=== PATIENT | male | born 1940 | race Caucasian/White ===

== ENCOUNTER 2020-02-06 23:52 | Observation (INO) ==
[2020-02-07 00:58] LABS: Basophils % 0.4 %; Eosinophils # 0.1 K/mcL (0.0-0.6); Hematocrit 35.7 % (37.5-50.1); Hemoglobin 11.5 g/dL (12.9-16.9); Immature Granulocytes % 0.2 % (0-4); Lymphocytes # 1.1 K/mcL (0.6-4.6); Lymphocytes % 13.4 %; Mean Corpuscular HGB Conc 32.2 g/dL (31.6-35.5); Mean Corpuscular Hemoglobin 28.3 pg (28.0-33.3); Mean Corpuscular Volume 87.7 fL (83.0-100.0); Mean Platelet Volume 11.1 fL (9.4-12.4); Monocytes % 12.8 %; Neutrophils # 5.9 K/mcL (1.6-8.9); Platelet Count 271 K/mcL (140-400); Red Blood Count 4.07 M/mcL (4.19-5.50); Red Cell Distribution Width 13.2 % (11.5-14.5); Segmented Neutrophils % 72.2 %; White Blood Count 8.1 K/mcL (4.3-11.1)
[2020-02-07 01:16] LABS: BUN/Creatinine Ratio 18 (6-26); Blood Urea Nitrogen 14 mg/dL (8-23); Calcium 9.6 mg/dL (8.6-10.3); Carbon Dioxide 26 mEq/L (23-29); Chloride 97 mEq/L (98-107); Glucose 137 mg/dL (70-105); Osmolality,Calculated 279 (280-300); Potassium 3.8 mEq/L (3.5-5.1); Sodium 133 mEq/L (136-145); eGFR For African Americans > 60 (> 60); eGFR For Non-African Americans > 60 (> 60)
[2020-02-07 01:25] LABS: Troponin I 0.06 ng/mL (< 0.04)
[2020-02-07] MEDS ORDERED: Aspirin 81 MG TAB.CHEW PO ONE (01:34)
[2020-02-07 02:02] LABS: Adenovirus Not Detected (Not Detect); Bordetella Pertussis Not Detected (Not Detect); Chlamydophila pneumoniae Not Detected (Not Detect); Coronavirus 229E Not Detected (Not Detect); Coronavirus HKU1 Not Detected (Not Detect); Coronavirus NL63 Not Detected (Not Detect); Coronavirus OC43 Not Detected (Not Detect); Human Metapneumovirus Not Detected (Not Detect); Human Rhinovirus/Enterovirus DETECTED (Not Detect); Influenza A Subtype 2009 H1 Not Detected (Not Detect); Influenza B Not Detected (Not Detect); Mycoplasma pneumoniae Not Detected (Not Detect); Parainfluenza Virus 1 Not Detected (Not Detect); Parainfluenza Virus 2 Not Detected (Not Detect); Parainfluenza Virus 3 Not Detected (Not Detect); Parainfluenza Virus 4 Not Detected (Not Detect); Respiratory Syncytial Virus Not Detected (Not Detect); SARS-CoV-2 Not Detected (Not Detect)
[2020-02-07] MEDS ORDERED: Isovue-370 500 ML BOTTLE IVP ONE (03:38)
[2020-02-07] MEDS ORDERED: Azithromycin 250 MG TABLET PO ONE (05:51)
[2020-02-07] MEDS ORDERED: cefTRIAXone 1,000 MG in Water for inj. (sterile) 10 ML IVP ONE (05:51)
[2020-02-07] MEDS ORDERED: Azithromycin 500 MG in 0.9 % Sodium Chloride 250 ML IVPB ONE (06:31)
[2020-02-07] MEDS ORDERED: Acetaminophen 325 MG TABLET PO PRN (08:04)
[2020-02-07] MEDS ORDERED: Ondansetron 4 MG/2 ML VIAL IVP PRN (08:04)
[2020-02-07] MEDS ORDERED: *HR* HYDROcodone/Acet 5/325 mg TABLET PO PRN (08:04)
[2020-02-07] MEDS ORDERED: Naloxone 0.4 MG/ML INJ IVP PRN (08:04)
[2020-02-07] MEDS ORDERED: *HR* OxyCODONE Immed Rel 5 MG TABLET PO PRN (08:04)
[2020-02-07] MEDS ORDERED: Perflutren Lipid Microsphere 1.3 ML in 0.9 % Sodium Chloride 8.7 ML IVP PRN (08:08)
[2020-02-07] MEDS ORDERED: *HR* OxyCODONE Oral Soln 5 MG/5 ML UD.LIQ GTUBE PRN (12:49)
[2020-02-07] MEDS ORDERED: Ipratropium/Albuterol Neb 3 ML IH PRN (16:58)
[2020-02-07] MEDS: *HR* Heparin 5,000 UNIT/ML VIAL SQ SCH (17:29)
[2020-02-08] MEDS ORDERED: Acetaminophen 325 MG TABLET PO SCH (00:45)
[2020-02-08] MEDS ORDERED: *HR* LORazepam 2 MG/ML VIAL IVP ONE (03:19)
[2020-02-08 03:50] LABS: Basophils % 0.5 %; Eosinophils # 0.2 K/mcL (0.0-0.6); Eosinophils % 2.4 %; Hematocrit 34.6 % (37.5-50.1); Hemoglobin 10.7 g/dL (12.9-16.9); Immature Granulocytes % 0.2 % (0-4); Lymphocytes # 1.7 K/mcL (0.6-4.6); Mean Corpuscular HGB Conc 30.9 g/dL (31.6-35.5); Mean Corpuscular Hemoglobin 27.2 pg (28.0-33.3); Mean Corpuscular Volume 87.8 fL (83.0-100.0); Mean Platelet Volume 11.9 fL (9.4-12.4); Monocytes % 11.7 %; Neutrophils # 5.6 K/mcL (1.6-8.9); Platelet Count 259 K/mcL (140-400); Red Blood Count 3.94 M/mcL (4.19-5.50); Red Cell Distribution Width 13.2 % (11.5-14.5); Segmented Neutrophils % 65.2 %; White Blood Count 8.6 K/mcL (4.3-11.1)
[2020-02-08 04:06] LABS: BUN/Creatinine Ratio 15 (6-26); Blood Urea Nitrogen 12 mg/dL (8-23); Calcium 9.7 mg/dL (8.6-10.3); Carbon Dioxide 25 mEq/L (23-29); Chloride 101 mEq/L (98-107); Glucose 120 mg/dL (70-105); Osmolality,Calculated 281 (280-300); Potassium 3.9 mEq/L (3.5-5.1); Sodium 135 mEq/L (136-145); eGFR For African Americans > 60 (> 60); eGFR For Non-African Americans > 60 (> 60)
[2020-02-08] MEDS: *HR* Heparin 5,000 UNIT/ML VIAL SQ SCH (06:45)
[2020-02-08] MEDS ORDERED: cefTRIAXone 1,000 MG in Water for inj. (sterile) 10 ML IVP SCH (09:00)
[2020-02-08] MEDS ORDERED: Azithromycin 500 MG in 0.9 % Sodium Chloride 250 ML IVPB SCH (09:00)
[2020-02-08 10:06] VITALS: BP 131/72
== END 2020-02-08 17:00 | disposition left against medical advice (07) ==
LOC: 2ANU 23:52 → EMEROOARM 23:52 → SUATTDRO 02-07 06:56 → 2ANU 02-07 07:45
PROVIDERS: ADMIT Internal Medicine; ATTEND Student in an Organized Health Care Education/Training Program

== ENCOUNTER 2020-02-08 20:52 | Observation (INO) ==
[2020-02-08] MEDS ORDERED: Isovue-370 500 ML BOTTLE IVP ONE (21:17)
[2020-02-08 21:43] LABS: Basophils % 0.5 %; Eosinophils # 0.2 K/mcL (0.0-0.6); Eosinophils % 3.2 %; Hematocrit 35.2 % (37.5-50.1); Hemoglobin 10.8 g/dL (12.9-16.9); Immature Granulocytes % 0.3 % (0-4); Lymphocytes # 1.3 K/mcL (0.6-4.6); Lymphocytes % 17.4 %; Mean Corpuscular HGB Conc 30.7 g/dL (31.6-35.5); Mean Platelet Volume 11.1 fL (9.4-12.4); Monocytes # 0.8 K/mcL (0.0-1.3); Monocytes % 10.6 %; Neutrophils # 5.1 K/mcL (1.6-8.9); Platelet Count 295 K/mcL (140-400); Red Cell Distribution Width 13.3 % (11.5-14.5); White Blood Count 7.6 K/mcL (4.3-11.1)
[2020-02-08 22:13] LABS: Alanine Aminotransferase 14 Units/L (7-52); Albumin 3.7 g/dL (3.5-5.7); Albumin/Globulin Ratio 0.9 (1.1-2.2); Alkaline Phosphatase 123 Units/L (34-104); Aspartate Amino Transferase 30 Units/L (13-39); BUN/Creatinine Ratio 15 (6-26); Bilirubin,Total 0.5 mg/dL (0.3-1.0); Blood Urea Nitrogen 11 mg/dL (8-23); Calcium 9.4 mg/dL (8.6-10.3); Carbon Dioxide 25 mEq/L (23-29); Chloride 100 mEq/L (98-107); Glucose 93 mg/dL (70-105); Osmolality,Calculated 279 (280-300); Potassium 4.2 mEq/L (3.5-5.1); Sodium 135 mEq/L (136-145); Total Protein 7.7 g/dL (6.4-8.9); Troponin I 0.06 ng/mL (< 0.04); eGFR For African Americans > 60 (> 60); eGFR For Non-African Americans > 60 (> 60)
[2020-02-08] MEDS ORDERED: Doxycycline 100 MG in 0.9 % Sodium Chloride Mini Bag 100 ML IVPB ONE (22:14)
[2020-02-08] MEDS ORDERED: Acetaminophen 325 MG TABLET PO PRN (22:14)
[2020-02-08] MEDS ORDERED: Naloxone 0.4 MG/ML INJ IVP PRN (22:14)
[2020-02-08] MEDS ORDERED: Ondansetron 4 MG/2 ML VIAL IVP PRN (22:14)
[2020-02-08] MEDS ORDERED: *HR* Dextrose 50 % in Water (Vial) 50 ML VIAL IVP PRN (23:09)
[2020-02-08] MEDS ORDERED: Dextrose Gel 15 GM/37.5 ML TUBE PO PRN ×2 (23:09)
[2020-02-08] MEDS ORDERED: D5% in Water 1,000 ML IVC PRN (23:09)
[2020-02-09] MEDS ORDERED: hydrOXYzine pamoate 25 MG CAPSULE PO PRN (00:57)
[2020-02-09] MEDS ORDERED: Ondansetron ODT 4 MG TAB.RAPDIS PO PRN (00:57)
[2020-02-09] MEDS ORDERED: *HR* FentaNYL PATCH 75 MCG PATCH TD SCH (01:00)
[2020-02-09] MEDS ORDERED: *HR* OxyCODONE/APAP 5/325 TABLET PO SCH (01:00)
[2020-02-09] MEDS: Albuterol 2.5 MG/3 ML NEBULIZER IH PRN ×3 (01:28→15:44)
[2020-02-09] MEDS: Acetylcysteine 10% 2 ML INHSOL IH SCH ×3 (01:28→15:44)
[2020-02-09] MEDS: *HR* Heparin 5,000 UNIT/ML VIAL SQ SCH ×2 (05:30→15:30)
[2020-02-09 06:30] LABS: Basophils % 0.3 %; Eosinophils # 0.2 K/mcL (0.0-0.6); Eosinophils % 2.3 %; Hemoglobin 10.5 g/dL (12.9-16.9); Immature Granulocytes % 0.3 % (0-4); Lymphocytes # 1.5 K/mcL (0.6-4.6); Lymphocytes % 22.5 %; Mean Corpuscular HGB Conc 30.9 g/dL (31.6-35.5); Mean Corpuscular Volume 90.7 fL (83.0-100.0); Mean Platelet Volume 11.1 fL (9.4-12.4); Monocytes # 0.8 K/mcL (0.0-1.3); Monocytes % 11.8 %; Neutrophils # 4.1 K/mcL (1.6-8.9); Platelet Count 269 K/mcL (140-400); Red Blood Count 3.75 M/mcL (4.19-5.50); Red Cell Distribution Width 13.4 % (11.5-14.5); Segmented Neutrophils % 62.8 %; White Blood Count 6.5 K/mcL (4.3-11.1)
[2020-02-09 06:50] LABS: Alanine Aminotransferase 12 Units/L (7-52); Albumin 3.6 g/dL (3.5-5.7); Alkaline Phosphatase 116 Units/L (34-104); Aspartate Amino Transferase 20 Units/L (13-39); BUN/Creatinine Ratio 14 (6-26); Bilirubin,Total 0.5 mg/dL (0.3-1.0); Blood Urea Nitrogen 10 mg/dL (8-23); Calcium 9.4 mg/dL (8.6-10.3); Carbon Dioxide 28 mEq/L (23-29); Chloride 101 mEq/L (98-107); Globulin 3.7 g/dL (2.4-3.5); Glucose 77 mg/dL (70-105); Osmolality,Calculated 282 (280-300); Potassium 3.6 mEq/L (3.5-5.1); Sodium 137 mEq/L (136-145); Total Protein 7.3 g/dL (6.4-8.9); eGFR For African Americans > 60 (> 60); eGFR For Non-African Americans > 60 (> 60)
[2020-02-09] MEDS: Insulin LISPRO 300 UNITS/3 ML VIAL SQ SCH ×3 (08:35→17:29)
[2020-02-09] MEDS ORDERED: Cholecalciferol (D-3) 1,000 UNIT (25MCG) TABLET PO SCH (09:00)
[2020-02-09] MEDS ORDERED: cefTRIAXone 1,000 MG in 0.9 % Sodium Chloride Mini Bag 100 ML IVPB SCH (09:00)
[2020-02-09] MEDS ORDERED: Cyanocobalamin (B-12) 1,000 MCG TABLET PO SCH (09:00)
[2020-02-09] MEDS ORDERED: Azithromycin 500 MG in 0.9 % Sodium Chloride 250 ML IVPB SCH (09:00)
[2020-02-09] MEDS ORDERED: *HR* LORazepam 2 MG/ML VIAL IVP PRN ×3 (10:02)
[2020-02-09] MEDS ORDERED: *HR* OxyCODONE Oral Soln 5 MG/5 ML UD.LIQ GTUBE PRN (11:42)
[2020-02-09] MEDS ORDERED: HydrOXYzine SYP 10 MG/5 ML UDC GTUBE PRN (11:43)
[2020-02-09] MEDS ORDERED: Ampicillin/Sulbactam 3,000 MG in 0.9 % Sodium Chloride Mini Bag 100 ML IVPB SCH (12:00)
[2020-02-09 15:38] VITALS: BP 134/69
[2020-02-09] MEDS ORDERED: Amoxicillin/Clavulanate 400 MG/5 ML UDC GTUBE SCH (18:00)
[2020-02-10] MEDS ORDERED: Cyanocobalamin (B-12) 1,000 MCG TABLET GTUBE SCH (09:00)
== END 2020-02-09 18:04 | disposition home or self-care (01) ==
LOC: 3ANU 20:52 → EMEROOARM 20:52 → SUATTDRO 23:01 → 3ANU 23:40
PROVIDERS: ADMIT Internal Medicine; ATTEND Family Medicine

== ENCOUNTER 2020-03-21 13:12 | Observation (INO) ==
[2020-03-21] MEDS ORDERED: 0.9 % Sodium Chloride 1,000 ML IVC ONE (13:42)
[2020-03-21 14:07] LABS: Basophils % 0.3 %; Eosinophils # 0.1 K/mcL (0.0-0.6); Eosinophils % 0.8 %; Hemoglobin 11.4 g/dL (12.9-16.9); Immature Granulocytes % 0.1 % (0-4); Lymphocytes % 12.6 %; Mean Corpuscular HGB Conc 30.8 g/dL (31.6-35.5); Mean Corpuscular Hemoglobin 26.5 pg (28.0-33.3); Mean Platelet Volume 10.7 fL (9.4-12.4); Monocytes # 1.1 K/mcL (0.0-1.3); Neutrophils # 5.8 K/mcL (1.6-8.9); Platelet Count 198 K/mcL (140-400); Red Cell Distribution Width 14.4 % (11.5-14.5); Segmented Neutrophils % 72.2 %
[2020-03-21 14:13] LABS: VBG Ionized Calcium 1.21 mmol/L (1.15-1.35)
[2020-03-21 14:13] LABS: INR 1.2
[2020-03-21 14:46] LABS: Alanine Aminotransferase 13 Units/L (7-52); Albumin 3.5 g/dL (3.5-5.7); Albumin/Globulin Ratio 0.9 (1.1-2.2); Alkaline Phosphatase 133 Units/L (34-104); Aspartate Amino Transferase 31 Units/L (13-39); BUN/Creatinine Ratio 22 (6-26); Bilirubin,Total 0.4 mg/dL (0.3-1.0); Blood Urea Nitrogen 18 mg/dL (8-23); Calcium 9.5 mg/dL (8.6-10.3); Carbon Dioxide 33 mEq/L (23-29); Chloride 98 mEq/L (98-107); Glucose 127 mg/dL (70-105); Osmolality,Calculated 285 (280-300); Potassium 3.9 mEq/L (3.5-5.1); Sodium 136 mEq/L (136-145); Thyroid Stimulating Hormone 2.578 mcIU/mL (0.340-5.600); Total Protein 7.5 g/dL (6.4-8.9); Troponin I 0.44 ng/mL (< 0.04); eGFR For African Americans > 60 (> 60); eGFR For Non-African Americans > 60 (> 60)
[2020-03-21] MEDS ORDERED: Aspirin 325 MG TABLET PO ONE (14:54)
[2020-03-21 15:18] LABS: Bilirubin,Urine Negative (Negative); Blood,Urine Negative (Negative); Clarity,Urine Clear (Clear); Color,Urine Yellow (Yellow); Glucose,Urine (UA) Normal (Normal); Hyaline Casts,Urine Many per lpf (None Seen); Ketones,Urine Negative (Negative); Leukocyte Esterase,Urine Negative (Negative); Mucus,Urine Many per lpf (None-Few); Nitrite,Urine Negative (Negative); PH,Urine 5.5 pH Units (5.0-8.0); Protein,Urine 50 mg/dL (Neg-Trace); Specific Gravity,Urine 1.029 (1.010-1.025); Urobilinogen,Urine Normal (Normal)
[2020-03-21 15:31] LABS: Adenovirus Not Detected (Not Detect); Bordetella Pertussis Not Detected (Not Detect); Chlamydophila pneumoniae Not Detected (Not Detect); Coronavirus 229E Not Detected (Not Detect); Coronavirus HKU1 Not Detected (Not Detect); Coronavirus NL63 Not Detected (Not Detect); Coronavirus OC43 Not Detected (Not Detect); Human Metapneumovirus Not Detected (Not Detect); Human Rhinovirus/Enterovirus Not Detected (Not Detect); Influenza A Subtype 2009 H1 Not Detected (Not Detect); Influenza B Not Detected (Not Detect); Mycoplasma pneumoniae Not Detected (Not Detect); Parainfluenza Virus 1 Not Detected (Not Detect); Parainfluenza Virus 2 Not Detected (Not Detect); Parainfluenza Virus 3 Not Detected (Not Detect); Parainfluenza Virus 4 Not Detected (Not Detect); Respiratory Syncytial Virus Not Detected (Not Detect); SARS-CoV-2 Not Detected (Not Detect)
[2020-03-21] MEDS ORDERED: levoFLOXacin 750 MG/150 ML 750 MG/150 ML BAG IVPB ONE (15:52)
[2020-03-21] MEDS ORDERED: Vancomycin 1,250 MG/262.5 ML IV.SOLN IVPB ONE (15:52)
[2020-03-21] MEDS ORDERED: Ondansetron 4 MG/2 ML VIAL IVP PRN (17:39)
[2020-03-21] MEDS ORDERED: Naloxone 0.4 MG/ML INJ IVP PRN (17:39)
[2020-03-21] MEDS ORDERED: Perflutren Lipid Microsphere 1.3 ML in 0.9 % Sodium Chloride 8.7 ML IVP PRN (18:01)
[2020-03-21] MEDS ORDERED: Nitroglycerin 0.4 MG TAB.SUBL SL PRN (18:04)
[2020-03-21] MEDS ORDERED: D5% in Water 1,000 ML IVC PRN (18:10)
[2020-03-21] MEDS ORDERED: *HR* Dextrose 50 % in Water (Vial) 50 ML VIAL IVP PRN (18:10)
[2020-03-21] MEDS ORDERED: Dextrose Gel 15 GM/37.5 ML TUBE PO PRN ×2 (18:10)
[2020-03-21] MEDS ORDERED: Vancomycin 1,000 MG, 0.9 % Sodium Chloride 1,000 ML IR ONE (18:21)
[2020-03-21 18:40] LABS: Magnesium 1.8 mg/dL (1.6-2.6)
[2020-03-21 18:51] LABS: Troponin I 0.45 ng/mL (< 0.04)
[2020-03-21] MEDS: Ipratropium/Albuterol Neb 3 ML IH SCH (22:18)
[2020-03-21] MEDS: *HR* Heparin 5,000 UNIT/ML VIAL SQ SCH (23:00)
[2020-03-22] MEDS: Ipratropium/Albuterol Neb 3 ML IH SCH ×3 (04:04→15:45)
[2020-03-22 04:38] LABS: Basophils % 0.3 %; Eosinophils # 0.1 K/mcL (0.0-0.6); Eosinophils % 0.7 %; Hematocrit 30.9 % (37.5-50.1); Immature Granulocytes % 0.3 % (0-4); Lymphocytes # 0.8 K/mcL (0.6-4.6); Lymphocytes % 11.2 %; Mean Corpuscular HGB Conc 30.4 g/dL (31.6-35.5); Mean Corpuscular Hemoglobin 26.4 pg (28.0-33.3); Mean Corpuscular Volume 86.8 fL (83.0-100.0); Mean Platelet Volume 11.4 fL (9.4-12.4); Monocytes # 0.9 K/mcL (0.0-1.3); Monocytes % 12.4 %; Neutrophils # 5.6 K/mcL (1.6-8.9); Platelet Count 161 K/mcL (140-400); Red Blood Count 3.56 M/mcL (4.19-5.50); Red Cell Distribution Width 14.1 % (11.5-14.5); Segmented Neutrophils % 75.1 %; White Blood Count 7.4 K/mcL (4.3-11.1)
[2020-03-22 04:39] LABS: Hemoglobin 9.4 g/dL (12.9-16.9)
[2020-03-22 04:59] LABS: BUN/Creatinine Ratio 21 (6-26); Blood Urea Nitrogen 14 mg/dL (8-23); Calcium 9.1 mg/dL (8.6-10.3); Carbon Dioxide 31 mEq/L (23-29); Chloride 101 mEq/L (98-107); Glucose 91 mg/dL (70-105); Osmolality,Calculated 284 (280-300); Potassium 3.8 mEq/L (3.5-5.1); Sodium 137 mEq/L (136-145); eGFR For African Americans > 60 (> 60); eGFR For Non-African Americans > 60 (> 60)
[2020-03-22] MEDS ORDERED: Vancomycin 1,250 MG/262.5 ML IV.SOLN IVPB SCH (05:00)
[2020-03-22 05:18] LABS: Troponin I 0.43 ng/mL (< 0.04)
[2020-03-22] MEDS: *HR* Heparin 5,000 UNIT/ML VIAL SQ SCH (06:14)
[2020-03-22] MEDS: Insulin LISPRO 300 UNITS/3 ML VIAL SUBQ SCH ×2 (07:58→11:47)
[2020-03-22] MEDS ORDERED: Piperacillin/Tazobactam 3.375 GM in 0.9 % Sodium Chloride Mini Bag 100 ML IVPB SCH (09:00)
[2020-03-22] MEDS ORDERED: Aspirin 81 MG TAB.CHEW PO SCH (09:00)
[2020-03-22 10:12] LABS: Hematocrit 32.7 % (37.5-50.1); Hemoglobin 9.9 g/dL (12.9-16.9)
[2020-03-22] MEDS ORDERED: E-Z-HD (BARIUM SULF) SUSPENSION PO ONE (10:24)
[2020-03-22] MEDS ORDERED: E-Z-PAQUE (BARIUM SULF) SUSP 1 BOTTLE PO ONE (10:24)
[2020-03-22] MEDS ORDERED: *HR* FentaNYL PATCH 100 MCG PATCH TD SCH (11:15)
[2020-03-22 11:16] LABS: Estimated Average Glucose 120 mg/dl; Hemoglobin A1C 5.8 %
[2020-03-22 11:48] VITALS: BP 132/66
[2020-03-22] MEDS ORDERED: levoFLOXacin 750 MG/150 ML 750 MG/150 ML BAG IVPB SCH (17:00)
[2020-03-23] MEDS ORDERED: Aspirin 81 MG TAB.CHEW GTUBE SCH (09:00)
== END 2020-03-22 15:48 | disposition left against medical advice (07) ==
LOC: 3BNU 13:12 → EMEROOARM 13:12 → SUATTDRO 17:06 → 3BNU 17:39
PROVIDERS: ADMIT Internal Medicine; ATTEND Internal Medicine

== ENCOUNTER 2020-05-14 13:12 | Inpatient (IN) ==
[~2020-05-14 13:12] MED LIST: *HR* EPINEPHrine 1 MG/10 ML SYRINGE IVP ONE; *HR* Rocuronium Bromide 50 MG/5 ML VIAL IVP ONE
[2020-05-14 14:21] LABS: INR 1.3; Prothrombin Time 15.2 Seconds (9.4-12.1)
[2020-05-14 14:27] LABS: Basophils % 0.3 %; Eosinophils % 0.1 %; Hematocrit 36.9 % (37.5-50.1); Hemoglobin 10.9 g/dL (12.9-16.9); Immature Granulocytes % 0.3 % (0-4); Lymphocytes % 6.7 %; Mean Corpuscular HGB Conc 29.5 g/dL (31.6-35.5); Mean Corpuscular Hemoglobin 25.4 pg (28.0-33.3); Mean Platelet Volume 10.8 fL (9.4-12.4); Monocytes # 1.1 K/mcL (0.0-1.3); Monocytes % 7.7 %; Neutrophils # 12.5 K/mcL (1.6-8.9); Platelet Count 246 K/mcL (140-400); Red Blood Count 4.29 M/mcL (4.19-5.50); Red Cell Distribution Width 15.9 % (11.5-14.5); Segmented Neutrophils % 84.9 %; White Blood Count 14.7 K/mcL (4.3-11.1)
[2020-05-14 14:35] LABS: Albumin 3.2 g/dL (3.5-5.7); Albumin/Globulin Ratio 0.9 (1.1-2.2); Bilirubin,Direct 0.2 mg/dL (0.0-0.2); Bilirubin,Indirect 0.6 mg/dL (0.0-1.0); Bilirubin,Total 0.8 mg/dL (0.3-1.0); Globulin 3.4 g/dL (2.4-3.5); Total Protein 6.6 g/dL (6.4-8.9)
[2020-05-14 14:38] LABS: BUN/Creatinine Ratio 20 (6-26); Blood Urea Nitrogen 14 mg/dL (8-23); Calcium 9.1 mg/dL (8.6-10.3); Carbon Dioxide 30 mEq/L (23-29); Chloride 98 mEq/L (98-107); Glucose 101 mg/dL (70-105); Osmolality,Calculated 279 (280-300); Potassium 4.2 mEq/L (3.5-5.1); Sodium 134 mEq/L (136-145); Troponin I 0.39 ng/mL (< 0.04); eGFR For African Americans > 60 (> 60); eGFR For Non-African Americans > 60 (> 60)
[2020-05-14] MEDS ORDERED: 0.9 % Sodium Chloride 1,000 ML ONE ×2 (14:41→16:27)
[2020-05-14 16:19] LABS: ABG Base Excess -1 mEq/L (-2 to 3); ABG HCO3 27 mEq/L (21-27); ABG Oxygen Saturation 92 % (95-98); ABG PCO2 60 mmHg (35-45); ABG PH 7.27 pH Units (7.32-7.45); ABG PO2 73 mmHg (85-104); ABG TCO2 29 mEq/L (20-26)
[2020-05-14] MEDS ORDERED: *HR* Propofol 200 MG/20 ML VIAL IVP ONE (16:19)
[2020-05-14] MEDS ORDERED: Lidocaine/EPI 1:100k 1% 50 ML VIAL ONE (16:19)
[2020-05-14] MEDS ORDERED: Oxymetazoline Nasal SPRAY BOTTLE NS ONE (16:19)
[2020-05-14] MEDS ORDERED: 0.9 % Sodium Chloride 1,000 ML IVC ONE (16:39)
[2020-05-14] MEDS ORDERED: Acetaminophen 325 MG TABLET PO PRN (16:45)
[2020-05-14] MEDS ORDERED: Naloxone 0.4 MG/ML INJ IVP PRN (16:45)
[2020-05-14] MEDS ORDERED: Artificial Tears SOLN 15 ML BOTTLE BOTH EYES PRN (16:54)
[2020-05-14] MEDS ORDERED: *HR* Midazolam HCl 2 MG/2 ML VIAL IV ONE (16:54)
[2020-05-14] MEDS ORDERED: Heparin 1,000 UNITS/500 mL 500 ML ONE (16:55)
[2020-05-14] MEDS ORDERED: Vancomycin (wt based) 1,000 MG VIAL IVPB SCH (17:00)
[2020-05-14] MEDS ORDERED: Vancomycin 1,250 MG/262.5 ML IV.SOLN IVPB ONE (17:30)
[2020-05-14] MEDS ORDERED: *HR* PHENYLEPHRINE 1,000 MCG/10 ML SYRINGE IVP ONE ×3 (17:35→18:45)
[2020-05-14 17:44] LABS: ABG Base Excess -3 mEq/L (-2 to 3); ABG Chloride 102 mEq/L (98-107); ABG Glucose 128 mg/dL (60-95); ABG HCO3 24 mEq/L (21-27); ABG Ionized Calcium 1.24 mmol/L (1.15-1.35); ABG Oxygen Saturation 91 % (95-98); ABG PCO2 50 mmHg (35-45); ABG PH 7.29 pH Units (7.32-7.45); ABG PO2 68 mmHg (85-104); ABG TCO2 26 mEq/L (20-26)
[2020-05-14] MEDS ORDERED: *HR* Midazolam HCl 2 MG/2 ML VIAL ONE ×2 (18:11→18:42)
[2020-05-14] MEDS ORDERED: Lacri-Lube 3.5 GM TUBE ONE (18:23)
[2020-05-14] MEDS ORDERED: Perflutren Lipid Microsphere 1.3 ML in 0.9 % Sodium Chloride 8.7 ML IVP PRN (18:39)
[2020-05-14] MEDS ORDERED: Thiamine (B-1) 100 MG in 0.9 % Sodium Chloride 50 ML IVPB SCH (18:45)
[2020-05-14] MEDS ORDERED: EPHEDrine 50 MG/ML VIAL ONE (18:48)
[2020-05-14 21:00] LABS: ABG Base Excess -3 mEq/L (-2 to 3); ABG HCO3 21 mEq/L (21-27); ABG Oxygen Saturation 93 % (95-98); ABG PCO2 33 mmHg (35-45); ABG PH 7.41 pH Units (7.32-7.45); ABG PO2 65 mmHg (85-104); ABG TCO2 22 mEq/L (20-26); Blood Gas Modality AF; Blood Gas VT 480 cc
[2020-05-14] MEDS ORDERED: D5% in Water 1,000 ML IVC PRN (21:15)
[2020-05-14] MEDS ORDERED: Dextrose Gel 15 GM/37.5 ML TUBE PO PRN ×2 (21:15)
[2020-05-14] MEDS ORDERED: *HR* Dextrose 50 % in Water (Vial) 50 ML VIAL IVP PRN (21:15)
[2020-05-14] MEDS: Budesonide/Formoterol 160/4.5 1 PUFF INH IH SCH (21:35)
[2020-05-14] MEDS: Folic Acid 1 MG in 0.9 % Sodium Chloride 50 ML IVPB SCH (21:51)
[2020-05-14] MEDS: Thiamine (B-1) 100 MG in 0.9 % Sodium Chloride 50 ML IVPB SCH (21:51)
[2020-05-14] MEDS: Vancomycin 1,250 MG/262.5 ML IV.SOLN IVPB SCH (21:52)
[2020-05-14] MEDS: *HR* Heparin 5,000 UNIT/ML VIAL SQ SCH (21:53)
[2020-05-14] MEDS: Chlorhexidine Rinse 15 ML MOUTHWASH MM SCH (21:53)
[2020-05-14] MEDS: Famotidine 20 MG/2 ML VIAL IVP SCH (21:53)
[2020-05-14] MEDS: Multivitamin Liquid 15 ML UDC GTUBE SCH (21:55)
[2020-05-14] MEDS: Piperacillin/Tazobactam 3.375 GM in 0.9 % Sodium Chloride Mini Bag 100 ML IVPB SCH (21:55)
[2020-05-14] MEDS: Azithromycin 500 MG in 0.9 % Sodium Chloride 250 ML IVPB SCH (22:02)
[2020-05-14] MEDS: Artificial Tears SOLN 15 ML BOTTLE BOTH EYES SCH (22:04)
[2020-05-14 22:34] LABS: Adenovirus Not Detected (Not Detect); Bordetella Pertussis Not Detected (Not Detect); Chlamydophila pneumoniae Not Detected (Not Detect); Coronavirus 229E Not Detected (Not Detect); Coronavirus HKU1 Not Detected (Not Detect); Coronavirus NL63 Not Detected (Not Detect); Coronavirus OC43 Not Detected (Not Detect); Human Metapneumovirus Not Detected (Not Detect); Human Rhinovirus/Enterovirus Not Detected (Not Detect); Influenza A Subtype 2009 H1 Not Detected (Not Detect); Influenza B Not Detected (Not Detect); Mycoplasma pneumoniae Not Detected (Not Detect); Parainfluenza Virus 1 Not Detected (Not Detect); Parainfluenza Virus 2 Not Detected (Not Detect); Parainfluenza Virus 3 Not Detected (Not Detect); Parainfluenza Virus 4 Not Detected (Not Detect); Respiratory Syncytial Virus Not Detected (Not Detect); SARS-CoV-2 Not Detected (Not Detect)
[2020-05-15] MEDS: methylPREDNISolone 125 MG/2 ML VIAL IVP SCH ×2 (00:54→06:07)
[2020-05-15] MEDS: Insulin LISPRO 300 UNITS/3 ML VIAL SUBQ SCH ×4 (00:55→17:38)
[2020-05-15] MEDS: Piperacillin/Tazobactam 3.375 GM in 0.9 % Sodium Chloride Mini Bag 100 ML IVPB SCH ×3 (00:55→15:35)
[2020-05-15] MEDS: Artificial Tears SOLN 15 ML BOTTLE BOTH EYES SCH ×12 (00:56→19:30)
[2020-05-15] MEDS: Midazolam HCl 50 MG/100 ML IV.SOLN IVC SCH ×2 (02:35→18:30)
[2020-05-15] MEDS: FentaNYL (PF) 1,000 MCG/100 ML IV.SOLN IVC SCH ×2 (02:36→18:30)
[2020-05-15 04:50] LABS: ABG Base Excess 0 mEq/L (-2 to 3); ABG HCO3 24 mEq/L (21-27); ABG Oxygen Saturation 93 % (95-98); ABG PCO2 35 mmHg (35-45); ABG PH 7.44 pH Units (7.32-7.45); ABG PO2 63 mmHg (85-104); ABG TCO2 25 mEq/L (20-26); Blood Gas Modality AF; Blood Gas VT 430 cc
[2020-05-15 05:03] LABS: Hematocrit 31.7 % (37.5-50.1); Hemoglobin 9.6 g/dL (12.9-16.9); Immature Granulocytes % 0.4 % (0-4); Lymphocytes # 0.3 K/mcL (0.6-4.6); Lymphocytes % 2.4 %; Mean Corpuscular HGB Conc 30.3 g/dL (31.6-35.5); Mean Corpuscular Hemoglobin 25.2 pg (28.0-33.3); Mean Corpuscular Volume 83.2 fL (83.0-100.0); Mean Platelet Volume 11.1 fL (9.4-12.4); Monocytes # 0.2 K/mcL (0.0-1.3); Monocytes % 1.3 %; Platelet Count 226 K/mcL (140-400); Red Blood Count 3.81 M/mcL (4.19-5.50); Red Cell Distribution Width 15.7 % (11.5-14.5); Segmented Neutrophils % 95.9 %; White Blood Count 13.5 K/mcL (4.3-11.1)
[2020-05-15 05:17] LABS: Alanine Aminotransferase 13 Units/L (7-52); Albumin 2.7 g/dL (3.5-5.7); Albumin/Globulin Ratio 0.9 (1.1-2.2); Alkaline Phosphatase 71 Units/L (34-104); Aspartate Amino Transferase 16 Units/L (13-39); BUN/Creatinine Ratio 22 (6-26); Bilirubin,Direct 0.5 mg/dL (0.0-0.2); Bilirubin,Indirect 0.6 mg/dL (0.0-1.0); Bilirubin,Total 1.1 mg/dL (0.3-1.0); Blood Urea Nitrogen 13 mg/dL (8-23); Calcium 8.8 mg/dL (8.6-10.3); Carbon Dioxide 23 mEq/L (23-29); Chloride 104 mEq/L (98-107); Glucose 150 mg/dL (70-105); Magnesium 1.5 mg/dL (1.6-2.6); Osmolality,Calculated 281 (280-300); Phosphorous 2.7 mg/dL (2.7-4.5); Potassium 4.3 mEq/L (3.5-5.1); Sodium 134 mEq/L (136-145); Total Protein 5.7 g/dL (6.4-8.9); eGFR For African Americans > 60 (> 60); eGFR For Non-African Americans > 60 (> 60)
[2020-05-15] MEDS: Famotidine 20 MG/2 ML VIAL IVP SCH ×2 (06:06→17:12)
[2020-05-15] MEDS: *HR* Heparin 5,000 UNIT/ML VIAL SQ SCH ×2 (06:07→17:12)
[2020-05-15] MEDS: Budesonide/Formoterol 160/4.5 1 PUFF INH IH SCH ×2 (07:30→20:07)
[2020-05-15] MEDS: Vancomycin 1,250 MG/262.5 ML IV.SOLN IVPB SCH ×2 (08:01→19:31)
[2020-05-15] MEDS: Chlorhexidine Rinse 15 ML MOUTHWASH MM SCH ×2 (08:01→19:30)
[2020-05-15] MEDS: Multivitamin Liquid 15 ML UDC GTUBE SCH (08:01)
[2020-05-15] MEDS ORDERED: *HR* Heparin 5,000 UNIT/ML VIAL IVP ONE (14:13)
[2020-05-15] MEDS ORDERED: *HR* Heparin 5,000 UNIT/ML VIAL IVP PRN ×2 (14:13)
[2020-05-15] MEDS ORDERED: Heparin 25,000UNIT/250ML 1/2NS 25,000 UNIT/250 ML IV.SOLN IVC SCH (14:15)
[2020-05-15] MEDS ORDERED: clonazePAM 0.5 MG TABLET GTUBE PRN (14:43)
[2020-05-15] MEDS: Aspirin 81 MG TAB.CHEW GTUBE SCH (15:40)
[2020-05-15] MEDS: MethylPREDNISolone 40 MG/ML VIAL IVP SCH (17:12)
[2020-05-15] MEDS: Thiamine (B-1) 100 MG in 0.9 % Sodium Chloride 50 ML IVPB SCH (17:13)
[2020-05-15] MEDS: Folic Acid 1 MG in 0.9 % Sodium Chloride 50 ML IVPB SCH (17:13)
[2020-05-15] MEDS: Azithromycin 500 MG in 0.9 % Sodium Chloride 250 ML IVPB SCH (17:14)
[2020-05-15] MEDS: Dexmedetomidine HCl 400 MCG/100 ML MLS IVC SCH (19:29)
[2020-05-15] MEDS: Nystatin POWDER 30 GM BOTTLE TP SCH (21:04)
[2020-05-16] MEDS: Artificial Tears SOLN 15 ML BOTTLE BOTH EYES SCH ×8 (00:36→20:32)
[2020-05-16] MEDS: Piperacillin/Tazobactam 3.375 GM in 0.9 % Sodium Chloride Mini Bag 100 ML IVPB SCH ×3 (00:36→16:13)
[2020-05-16] MEDS: Insulin LISPRO 300 UNITS/3 ML VIAL SUBQ SCH ×4 (00:37→17:52)
[2020-05-16 03:48] LABS: Basophils % 0.1 %; Hematocrit 28.4 % (37.5-50.1); Hemoglobin 8.7 g/dL (12.9-16.9); Immature Granulocytes % 0.5 % (0-4); Lymphocytes # 0.6 K/mcL (0.6-4.6); Lymphocytes % 3.9 %; Mean Corpuscular HGB Conc 30.6 g/dL (31.6-35.5); Mean Corpuscular Hemoglobin 25.4 pg (28.0-33.3); Monocytes # 0.6 K/mcL (0.0-1.3); Monocytes % 4.1 %; Neutrophils # 13.7 K/mcL (1.6-8.9); Platelet Count 184 K/mcL (140-400); Red Blood Count 3.42 M/mcL (4.19-5.50); Red Cell Distribution Width 16.1 % (11.5-14.5); Segmented Neutrophils % 91.4 %
[2020-05-16 04:02] LABS: BUN/Creatinine Ratio 26 (6-26); Blood Urea Nitrogen 17 mg/dL (8-23); Calcium 8.3 mg/dL (8.6-10.3); Carbon Dioxide 24 mEq/L (23-29); Chloride 105 mEq/L (98-107); Glucose 169 mg/dL (70-105); Magnesium 1.6 mg/dL (1.6-2.6); Osmolality,Calculated 285 (280-300); Potassium 3.4 mEq/L (3.5-5.1); Sodium 135 mEq/L (136-145); eGFR For African Americans > 60 (> 60); eGFR For Non-African Americans > 60 (> 60)
[2020-05-16 04:35] LABS: ABG Base Excess 0 mEq/L (-2 to 3); ABG HCO3 24 mEq/L (21-27); ABG Oxygen Saturation 96 % (95-98); ABG PCO2 37 mmHg (35-45); ABG PH 7.43 pH Units (7.32-7.45); ABG PO2 80 mmHg (85-104); ABG TCO2 25 mEq/L (20-26); Blood Gas Modality AF; Blood Gas VT 430 cc
[2020-05-16] MEDS ORDERED: 0.9 % Sodium Chloride 1,000 ML IVC ONE (04:51)
[2020-05-16] MEDS ORDERED: 0.9 % Sodium Chloride 1,000 ML ONE (04:54)
[2020-05-16] MEDS ORDERED: Potassium Chloride 40 MEQ/200 ML BAG IVPB PRN (05:40)
[2020-05-16] MEDS: *HR* Heparin 5,000 UNIT/ML VIAL SQ SCH ×2 (05:41→17:49)
[2020-05-16] MEDS: MethylPREDNISolone 40 MG/ML VIAL IVP SCH (05:48)
[2020-05-16] MEDS: Famotidine 20 MG/2 ML VIAL IVP SCH ×2 (05:49→17:49)
[2020-05-16] MEDS: FentaNYL (PF) 1,000 MCG/100 ML IV.SOLN IVC SCH (06:05)
[2020-05-16] MEDS: Budesonide/Formoterol 160/4.5 1 PUFF INH IH SCH ×2 (07:25→19:49)
[2020-05-16] MEDS: Chlorhexidine Rinse 15 ML MOUTHWASH MM SCH ×2 (08:38→20:32)
[2020-05-16] MEDS: Nystatin POWDER 30 GM BOTTLE TP SCH ×3 (08:39→20:32)
[2020-05-16] MEDS: Multivitamin Liquid 15 ML UDC GTUBE SCH (08:39)
[2020-05-16] MEDS: Aspirin 81 MG TAB.CHEW GTUBE SCH (08:39)
[2020-05-16] MEDS ORDERED: *HR* LORazepam 2 MG/ML VIAL IVP PRN ×2 (09:15)
[2020-05-16] MEDS: Vancomycin 1,250 MG/262.5 ML IV.SOLN IVPB SCH ×2 (09:40→20:00)
[2020-05-16] MEDS: *HR* LORazepam 2 MG/ML VIAL IVP PRN ×2 (11:45→20:15)
[2020-05-16] MEDS: Azithromycin 500 MG in 0.9 % Sodium Chloride 250 ML IVPB SCH (16:13)
[2020-05-16] MEDS: Thiamine (B-1) 100 MG in 0.9 % Sodium Chloride 50 ML IVPB SCH (17:49)
[2020-05-16] MEDS: Folic Acid 1 MG in 0.9 % Sodium Chloride 50 ML IVPB SCH (17:49)
[2020-05-16] MEDS: Dexmedetomidine HCl 400 MCG/100 ML MLS IVC SCH (20:33)
[2020-05-17] MEDS: Piperacillin/Tazobactam 3.375 GM in 0.9 % Sodium Chloride Mini Bag 100 ML IVPB SCH ×3 (00:06→15:29)
[2020-05-17] MEDS: Insulin LISPRO 300 UNITS/3 ML VIAL SUBQ SCH ×4 (00:07→18:01)
[2020-05-17] MEDS: Artificial Tears SOLN 15 ML BOTTLE BOTH EYES SCH ×4 (00:07→11:28)
[2020-05-17 05:10] LABS: Basophils % 0.1 %; Hematocrit 30.4 % (37.5-50.1); Hemoglobin 9.2 g/dL (12.9-16.9); Immature Granulocytes % 0.4 % (0-4); Lymphocytes # 0.8 K/mcL (0.6-4.6); Lymphocytes % 7.5 %; Mean Corpuscular HGB Conc 30.3 g/dL (31.6-35.5); Mean Corpuscular Hemoglobin 25.8 pg (28.0-33.3); Mean Corpuscular Volume 85.2 fL (83.0-100.0); Monocytes # 0.9 K/mcL (0.0-1.3); Platelet Count 211 K/mcL (140-400); Red Blood Count 3.57 M/mcL (4.19-5.50); Red Cell Distribution Width 16.4 % (11.5-14.5); White Blood Count 10.7 K/mcL (4.3-11.1)
[2020-05-17 05:29] LABS: BUN/Creatinine Ratio 22 (6-26); Blood Urea Nitrogen 20 mg/dL (8-23); Calcium 8.9 mg/dL (8.6-10.3); Carbon Dioxide 26 mEq/L (23-29); Chloride 111 mEq/L (98-107); Glucose 132 mg/dL (70-105); Osmolality,Calculated 292 (280-300); Potassium 3.6 mEq/L (3.5-5.1); Sodium 139 mEq/L (136-145); eGFR For African Americans > 60 (> 60); eGFR For Non-African Americans > 60 (> 60)
[2020-05-17] MEDS: *HR* Heparin 5,000 UNIT/ML VIAL SQ SCH (06:12)
[2020-05-17] MEDS: Famotidine 20 MG/2 ML VIAL IVP SCH (06:13)
[2020-05-17] MEDS: Multivitamin Liquid 15 ML UDC GTUBE SCH (07:52)
[2020-05-17] MEDS: Aspirin 81 MG TAB.CHEW GTUBE SCH (07:52)
[2020-05-17] MEDS: Chlorhexidine Rinse 15 ML MOUTHWASH MM SCH (07:52)
[2020-05-17] MEDS: Nystatin POWDER 30 GM BOTTLE TP SCH (07:53)
[2020-05-17] MEDS ORDERED: MethylPREDNISolone 40 MG/ML VIAL IVP SCH (09:00)
[2020-05-17] MEDS ORDERED: Vancomycin 1,250 MG/262.5 ML IV.SOLN IVPB SCH (09:00)
[2020-05-17] MEDS: Budesonide/Formoterol 160/4.5 1 PUFF INH IH SCH ×2 (09:37→19:55)
[2020-05-17] MEDS ORDERED: Artificial Tears SOLN 15 ML BOTTLE BOTH EYES PRN (13:05)
[2020-05-17] MEDS ORDERED: *HR* LORazepam 2 MG/ML VIAL IVP PRN ×3 (13:05)
[2020-05-17] MEDS ORDERED: *HR* Dextrose 50 % in Water (Vial) 50 ML VIAL IVP PRN (13:05)
[2020-05-17] MEDS ORDERED: Acetaminophen 325 MG TABLET PO PRN (13:05)
[2020-05-17] MEDS ORDERED: Dextrose Gel 15 GM/37.5 ML TUBE PO PRN ×2 (13:05)
[2020-05-17] MEDS: Dexmedetomidine HCl 400 MCG/100 ML MLS IVC SCH (13:23)
[2020-05-17] MEDS ORDERED: *HR* FentaNYL (PF) 100 MCG/2 ML VIAL IVP PRN (13:29)
[2020-05-17] MEDS: *HR* FentaNYL PATCH 100 MCG PATCH TD SCH (13:55)
[2020-05-17] MEDS: Famotidine 20 MG TABLET PO SCH (20:55)
[2020-05-18] MEDS: Piperacillin/Tazobactam 3.375 GM in 0.9 % Sodium Chloride Mini Bag 100 ML IVPB SCH ×3 (00:23→15:22)
[2020-05-18] MEDS: Insulin LISPRO 300 UNITS/3 ML VIAL SUBQ SCH ×4 (00:24→18:11)
[2020-05-18] MEDS: Dexmedetomidine HCl 400 MCG/100 ML MLS IVC SCH ×2 (03:42→20:02)
[2020-05-18 05:38] LABS: Hematocrit 30.1 % (37.5-50.1); Hemoglobin 9.4 g/dL (12.9-16.9); Mean Corpuscular HGB Conc 31.2 g/dL (31.6-35.5); Mean Corpuscular Hemoglobin 26.2 pg (28.0-33.3); Mean Corpuscular Volume 83.8 fL (83.0-100.0); Mean Platelet Volume 11.4 fL (9.4-12.4); Platelet Count 207 K/mcL (140-400); Red Blood Count 3.59 M/mcL (4.19-5.50); Red Cell Distribution Width 16.8 % (11.5-14.5); White Blood Count 11.7 K/mcL (4.3-11.1)
[2020-05-18 05:58] LABS: BUN/Creatinine Ratio 25 (6-26); Blood Urea Nitrogen 21 mg/dL (8-23); Calcium 8.7 mg/dL (8.6-10.3); Carbon Dioxide 25 mEq/L (23-29); Chloride 112 mEq/L (98-107); Chol/HDL Ratio 2.3 (0-4.9); Cholesterol 60 mg/dL (< 200); Glucose 130 mg/dL (70-105); HDL Cholesterol 26 mg/dL (40-59); LDL Cholesterol,Calculated 16 mg/dL (< 100); Magnesium 1.8 mg/dL (1.6-2.6); Osmolality,Calculated 301 (280-300); Phosphorous 2.5 mg/dL (2.7-4.5); Potassium 3.4 mEq/L (3.5-5.1); Sodium 143 mEq/L (136-145); Triglycerides 89 mg/dL (< 150); eGFR For African Americans > 60 (> 60); eGFR For Non-African Americans > 60 (> 60)
[2020-05-18] MEDS: Famotidine 20 MG TABLET PO SCH ×2 (07:38→20:24)
[2020-05-18] MEDS: Multivit/Ca/Min/Fe/FA 1 TAB TABLET PO SCH (07:38)
[2020-05-18] MEDS: Aspirin 81 MG TAB.CHEW GTUBE SCH (07:38)
[2020-05-18] MEDS: MethylPREDNISolone 40 MG/ML VIAL IVP SCH (07:39)
[2020-05-18] MEDS: Budesonide/Formoterol 160/4.5 1 PUFF INH IH SCH ×2 (07:52→21:44)
[2020-05-18] MEDS ORDERED: Vancomycin 1,500 MG/265 ML IV.SOLN IVPB SCH ×2 (11:00→16:00)
[2020-05-18] MEDS ORDERED: Thiamine (B-1) 100 MG in 0.9 % Sodium Chloride 50 ML IVPB STA (15:03)
[2020-05-19] MEDS: Piperacillin/Tazobactam 3.375 GM in 0.9 % Sodium Chloride Mini Bag 100 ML IVPB SCH ×3 (00:20→16:13)
[2020-05-19] MEDS: Insulin LISPRO 300 UNITS/3 ML VIAL SUBQ SCH ×4 (00:20→18:07)
[2020-05-19 04:52] LABS: VBG HCO3 27 mEq/L (21-27); VBG PCO2 48 mmHg (41-51); VBG PH 7.37 pH Units (7.32-7.42); VBG PO2 199 mmHg (25-50)
[2020-05-19 05:06] LABS: Hematocrit 28.6 % (37.5-50.1); Hemoglobin 8.8 g/dL (12.9-16.9); Mean Corpuscular HGB Conc 30.8 g/dL (31.6-35.5); Mean Corpuscular Hemoglobin 25.2 pg (28.0-33.3); Mean Corpuscular Volume 81.9 fL (83.0-100.0); Mean Platelet Volume 11.2 fL (9.4-12.4); Platelet Count 192 K/mcL (140-400); Red Blood Count 3.49 M/mcL (4.19-5.50); Red Cell Distribution Width 16.8 % (11.5-14.5); White Blood Count 10.1 K/mcL (4.3-11.1)
[2020-05-19 05:47] LABS: BUN/Creatinine Ratio 28 (6-26); Blood Urea Nitrogen 21 mg/dL (8-23); Calcium 8.3 mg/dL (8.6-10.3); Carbon Dioxide 25 mEq/L (23-29); Chloride 107 mEq/L (98-107); Ferritin 38 ng/mL (20-250); Glucose 146 mg/dL (70-105); Iron < 10 mcg/dL (65-175); Osmolality,Calculated 290 (280-300); Phosphorous 2.3 mg/dL (2.7-4.5); Potassium 3.7 mEq/L (3.5-5.1); Sodium 137 mEq/L (136-145); Transferrin 173 mg/dL (203-362); eGFR For African Americans > 60 (> 60); eGFR For Non-African Americans > 60 (> 60)
[2020-05-19 05:51] LABS: Folate 9.6 ng/mL (3.0-16.0)
[2020-05-19] MEDS ORDERED: Iron Sucrose Complex 400 MG in 0.9 % Sodium Chloride 250 ML IVPB ONE (07:48)
[2020-05-19] MEDS: Famotidine 20 MG TABLET PO SCH (07:58)
[2020-05-19] MEDS: Thiamine (B-1) 100 MG TABLET GTUBE SCH (07:58)
[2020-05-19] MEDS: Folic Acid 1 MG TABLET GTUBE SCH (07:58)
[2020-05-19] MEDS: Aspirin 81 MG TAB.CHEW GTUBE SCH (07:58)
[2020-05-19] MEDS: Multivit/Ca/Min/Fe/FA 1 TAB TABLET PO SCH (07:58)
[2020-05-19] MEDS: MethylPREDNISolone 40 MG/ML VIAL IVP SCH (07:59)
[2020-05-19] MEDS: Multivitamin Liquid 15 ML UDC GTUBE SCH (09:01)
[2020-05-19] MEDS: Famotidine 20 MG TABLET GTUBE SCH ×2 (09:01→20:20)
[2020-05-19] MEDS: Dexmedetomidine HCl 400 MCG/100 ML MLS IVC SCH ×2 (09:10→20:25)
[2020-05-19] MEDS: Budesonide/Formoterol 160/4.5 1 PUFF INH IH SCH ×2 (10:51→20:08)
[2020-05-19] MEDS: haloperidoL 1 MG TABLET PO SCH ×3 (12:21→23:30)
[2020-05-20] MEDS: Insulin LISPRO 300 UNITS/3 ML VIAL SUBQ SCH ×4 (00:24→19:09)
[2020-05-20] MEDS: Piperacillin/Tazobactam 3.375 GM in 0.9 % Sodium Chloride Mini Bag 100 ML IVPB SCH ×3 (00:24→16:41)
[2020-05-20 01:19] LABS: Hematocrit 30.9 % (37.5-50.1); Hemoglobin 9.6 g/dL (12.9-16.9); Mean Corpuscular HGB Conc 31.1 g/dL (31.6-35.5); Mean Corpuscular Hemoglobin 25.9 pg (28.0-33.3); Mean Corpuscular Volume 83.3 fL (83.0-100.0); Mean Platelet Volume 11.2 fL (9.4-12.4); Platelet Count 201 K/mcL (140-400); Red Blood Count 3.71 M/mcL (4.19-5.50); Red Cell Distribution Width 16.6 % (11.5-14.5); White Blood Count 11.1 K/mcL (4.3-11.1)
[2020-05-20 01:29] LABS: BUN/Creatinine Ratio 21 (6-26); Blood Urea Nitrogen 16 mg/dL (8-23); Calcium 8.5 mg/dL (8.6-10.3); Carbon Dioxide 30 mEq/L (23-29); Chloride 105 mEq/L (98-107); Glucose 89 mg/dL (70-105); Magnesium 1.9 mg/dL (1.6-2.6); Osmolality,Calculated 287 (280-300); Phosphorous 2.1 mg/dL (2.7-4.5); Potassium 3.8 mEq/L (3.5-5.1); Sodium 138 mEq/L (136-145); eGFR For African Americans > 60 (> 60); eGFR For Non-African Americans > 60 (> 60)
[2020-05-20 04:25] LABS: ABG Base Excess 4 mEq/L (-2 to 3); ABG HCO3 27 mEq/L (21-27); ABG Oxygen Saturation 93 % (95-98); ABG PCO2 32 mmHg (35-45); ABG PH 7.53 pH Units (7.32-7.45); ABG PO2 58 mmHg (85-104); ABG TCO2 28 mEq/L (20-26); Blood Gas Modality AF; Blood Gas VT 500 cc
[2020-05-20] MEDS: haloperidoL 1 MG TABLET PO SCH (04:42)
[2020-05-20] MEDS: Budesonide/Formoterol 160/4.5 1 PUFF INH IH SCH ×2 (07:21→20:36)
[2020-05-20] MEDS ORDERED: Potassium Phosphate 44 MEQ in 0.9 % Sodium Chloride 250 ML IVPB ONE (07:30)
[2020-05-20] MEDS: MethylPREDNISolone 40 MG/ML VIAL IVP SCH (08:12)
[2020-05-20] MEDS: Calcium Gluconate 1gm/50mL 1 GM/50 ML BAG IVPB SCH ×2 (08:16→10:07)
[2020-05-20] MEDS: Multivitamin Liquid 15 ML UDC GTUBE SCH (10:07)
[2020-05-20] MEDS: Aspirin 81 MG TAB.CHEW GTUBE SCH (10:07)
[2020-05-20] MEDS: Folic Acid 1 MG TABLET GTUBE SCH (10:08)
[2020-05-20] MEDS: Famotidine 20 MG TABLET GTUBE SCH ×2 (10:08→21:22)
[2020-05-20] MEDS: Thiamine (B-1) 100 MG TABLET GTUBE SCH (10:09)
[2020-05-20] MEDS ORDERED: haloperidoL 1 MG TABLET SL SCH (10:50)
[2020-05-20] MEDS: *HR* FentaNYL PATCH 100 MCG PATCH TD SCH (12:57)
[2020-05-20] MEDS: Haloperidol Oral Conc 10 MG/5 ML UDC PO SCH ×2 (12:59→19:27)
[2020-05-20] MEDS ORDERED: 0.9 % Sodium Chloride 500 ML ONE (13:21)
[2020-05-20] MEDS: Nicotine 14 MG PATCH.TD24 TD SCH (16:41)
[2020-05-20] MEDS: Dexmedetomidine HCl 400 MCG/100 ML MLS IVC SCH (16:49)
[2020-05-20] MEDS ORDERED: *HR* Metoprolol 5 MG/5 ML VIAL IVP PRN (18:49)
[2020-05-20] MEDS: Chlorhexidine Rinse 15 ML MOUTHWASH MM SCH (21:22)
[2020-05-20] MEDS: OLANZapine 5 MG TAB.RAPDIS PO SCH (21:22)
[2020-05-21] MEDS: Haloperidol Oral Conc 10 MG/5 ML UDC PO SCH ×4 (00:30→19:43)
[2020-05-21] MEDS: Piperacillin/Tazobactam 3.375 GM in 0.9 % Sodium Chloride Mini Bag 100 ML IVPB SCH ×3 (02:47→18:18)
[2020-05-21 03:51] LABS: Hematocrit 26.5 % (37.5-50.1); Hemoglobin 8.3 g/dL (12.9-16.9); Mean Corpuscular HGB Conc 31.3 g/dL (31.6-35.5); Mean Corpuscular Hemoglobin 25.9 pg (28.0-33.3); Mean Corpuscular Volume 82.8 fL (83.0-100.0); Mean Platelet Volume 11.1 fL (9.4-12.4); Platelet Count 191 K/mcL (140-400); White Blood Count 11.2 K/mcL (4.3-11.1)
[2020-05-21 04:09] LABS: BUN/Creatinine Ratio 16 (6-26); Blood Urea Nitrogen 13 mg/dL (8-23); Calcium 8.6 mg/dL (8.6-10.3); Carbon Dioxide 27 mEq/L (23-29); Chloride 101 mEq/L (98-107); Glucose 189 mg/dL (70-105); Magnesium 1.8 mg/dL (1.6-2.6); Osmolality,Calculated 281 (280-300); Phosphorous 3.2 mg/dL (2.7-4.5); Potassium 3.7 mEq/L (3.5-5.1); Sodium 133 mEq/L (136-145); eGFR For African Americans > 60 (> 60); eGFR For Non-African Americans > 60 (> 60)
[2020-05-21] MEDS: Insulin LISPRO 300 UNITS/3 ML VIAL SUBQ SCH ×4 (05:08→19:43)
[2020-05-21] MEDS: Budesonide/Formoterol 160/4.5 1 PUFF INH IH SCH ×2 (08:10→20:24)
[2020-05-21] MEDS: Folic Acid 1 MG TABLET GTUBE SCH (09:00)
[2020-05-21] MEDS: Thiamine (B-1) 100 MG TABLET GTUBE SCH (09:00)
[2020-05-21] MEDS: Multivitamin Liquid 15 ML UDC GTUBE SCH (09:00)
[2020-05-21] MEDS: lisinopriL 5 MG TABLET PO SCH (09:00)
[2020-05-21] MEDS: Aspirin 81 MG TAB.CHEW GTUBE SCH (09:00)
[2020-05-21] MEDS: Famotidine 20 MG TABLET GTUBE SCH ×2 (09:00→20:55)
[2020-05-21] MEDS: Ferrous Sulfate Oral Soln 300 MG/5 ML UDC GTUBE SCH (09:00)
[2020-05-21] MEDS: MethylPREDNISolone 40 MG/ML VIAL IVP SCH (10:20)
[2020-05-21] MEDS: Chlorhexidine Rinse 15 ML MOUTHWASH MM SCH ×2 (10:20→20:55)
[2020-05-21] MEDS: Dexmedetomidine HCl 400 MCG/100 ML MLS IVC SCH (18:22)
[2020-05-21] MEDS: Nicotine 14 MG PATCH.TD24 TD SCH (20:27)
[2020-05-21] MEDS: OLANZapine 5 MG TAB.RAPDIS PO SCH (20:55)
[2020-05-22] MEDS: Insulin LISPRO 300 UNITS/3 ML VIAL SUBQ SCH ×4 (01:04→18:12)
[2020-05-22] MEDS: Vancomycin 1,250 MG/262.5 ML IV.SOLN IVPB SCH (01:12)
[2020-05-22] MEDS: Piperacillin/Tazobactam 3.375 GM in 0.9 % Sodium Chloride Mini Bag 100 ML IVPB SCH ×3 (01:14→16:31)
[2020-05-22] MEDS: Haloperidol Oral Conc 10 MG/5 ML UDC PO SCH ×4 (01:15→18:00)
[2020-05-22 01:50] LABS: Hematocrit 26.1 % (37.5-50.1); Hemoglobin 8.2 g/dL (12.9-16.9); Mean Corpuscular HGB Conc 31.4 g/dL (31.6-35.5); Mean Corpuscular Hemoglobin 25.7 pg (28.0-33.3); Mean Corpuscular Volume 81.8 fL (83.0-100.0); Mean Platelet Volume 11.4 fL (9.4-12.4); Platelet Count 187 K/mcL (140-400); Red Blood Count 3.19 M/mcL (4.19-5.50); Red Cell Distribution Width 16.8 % (11.5-14.5); White Blood Count 9.1 K/mcL (4.3-11.1)
[2020-05-22 02:09] LABS: BUN/Creatinine Ratio 15 (6-26); Blood Urea Nitrogen 13 mg/dL (8-23); Calcium 8.6 mg/dL (8.6-10.3); Carbon Dioxide 29 mEq/L (23-29); Chloride 103 mEq/L (98-107); Glucose 120 mg/dL (70-105); Magnesium 2.3 mg/dL (1.6-2.6); Osmolality,Calculated 283 (280-300); Phosphorous 3.3 mg/dL (2.7-4.5); Potassium 3.9 mEq/L (3.5-5.1); Sodium 136 mEq/L (136-145); eGFR For African Americans > 60 (> 60); eGFR For Non-African Americans > 60 (> 60)
[2020-05-22] MEDS: Chlorhexidine Rinse 15 ML MOUTHWASH MM SCH ×2 (07:56→20:39)
[2020-05-22] MEDS: Aspirin 81 MG TAB.CHEW GTUBE SCH (07:57)
[2020-05-22] MEDS: MethylPREDNISolone 40 MG/ML VIAL IVP SCH ×2 (07:57→17:59)
[2020-05-22] MEDS: Ferrous Sulfate Oral Soln 300 MG/5 ML UDC GTUBE SCH (07:57)
[2020-05-22] MEDS: Thiamine (B-1) 100 MG TABLET GTUBE SCH (07:57)
[2020-05-22] MEDS: Folic Acid 1 MG TABLET GTUBE SCH (07:57)
[2020-05-22] MEDS: Famotidine 20 MG TABLET GTUBE SCH (07:57)
[2020-05-22] MEDS: Multivitamin Liquid 15 ML UDC GTUBE SCH (07:57)
[2020-05-22] MEDS: Nicotine 14 MG PATCH.TD24 TD SCH (07:59)
[2020-05-22] MEDS: lisinopriL 5 MG TABLET PO SCH (07:59)
[2020-05-22] MEDS: Budesonide/Formoterol 160/4.5 1 PUFF INH IH SCH ×2 (08:25→22:34)
[2020-05-22] MEDS: clonazePAM 0.5 MG TABLET GTUBE PRN (09:44)
[2020-05-22] MEDS ORDERED: Haloperidol Oral Conc 10 MG/5 ML UDC PO PRN (10:15)
[2020-05-22] MEDS ORDERED: Ipratropium/Albuterol Neb 3 ML ONE (11:08)
[2020-05-22] MEDS: Acetylcysteine 10% 2 ML INHSOL IH SCH ×3 (11:12→22:34)
[2020-05-22] MEDS: Ipratropium/Albuterol Neb 3 ML IH SCH ×3 (11:12→22:34)
[2020-05-22] MEDS ORDERED: Furosemide 20 MG/2 ML VIAL IVP SCH (12:30)
[2020-05-22] MEDS: OLANZapine 5 MG TAB.RAPDIS PO SCH (20:40)
[2020-05-23] MEDS: Piperacillin/Tazobactam 3.375 GM in 0.9 % Sodium Chloride Mini Bag 100 ML IVPB SCH ×3 (00:34→17:26)
[2020-05-23] MEDS: Vancomycin 1,250 MG/262.5 ML IV.SOLN IVPB SCH (00:35)
[2020-05-23] MEDS: Haloperidol Oral Conc 10 MG/5 ML UDC PO SCH ×3 (00:35→17:26)
[2020-05-23] MEDS: Insulin LISPRO 300 UNITS/3 ML VIAL SUBQ SCH ×4 (00:38→17:27)
[2020-05-23] MEDS: clonazePAM 0.5 MG TABLET GTUBE PRN ×3 (03:32→21:24)
[2020-05-23] MEDS: Acetylcysteine 10% 2 ML INHSOL IH SCH ×4 (04:14→22:58)
[2020-05-23] MEDS: Ipratropium/Albuterol Neb 3 ML IH SCH ×4 (04:14→22:58)
[2020-05-23 05:10] LABS: Hematocrit 26.3 % (37.5-50.1); Hemoglobin 8.1 g/dL (12.9-16.9); Mean Corpuscular HGB Conc 30.8 g/dL (31.6-35.5); Mean Corpuscular Hemoglobin 25.3 pg (28.0-33.3); Mean Corpuscular Volume 82.2 fL (83.0-100.0); Mean Platelet Volume 11.5 fL (9.4-12.4); Platelet Count 177 K/mcL (140-400); Red Cell Distribution Width 17.2 % (11.5-14.5); White Blood Count 9.2 K/mcL (4.3-11.1)
[2020-05-23 05:31] LABS: BUN/Creatinine Ratio 19 (6-26); Blood Urea Nitrogen 17 mg/dL (8-23); Calcium 8.4 mg/dL (8.6-10.3); Carbon Dioxide 24 mEq/L (23-29); Chloride 102 mEq/L (98-107); Glucose 226 mg/dL (70-105); Osmolality,Calculated 291 (280-300); Phosphorous 1.9 mg/dL (2.7-4.5); Potassium 3.6 mEq/L (3.5-5.1); Sodium 136 mEq/L (136-145); eGFR For African Americans > 60 (> 60); eGFR For Non-African Americans > 60 (> 60)
[2020-05-23] MEDS: MethylPREDNISolone 40 MG/ML VIAL IVP SCH ×2 (05:58→17:25)
[2020-05-23] MEDS ORDERED: Potassium Phosphate 44 MEQ in 0.9 % Sodium Chloride 250 ML IVPB ONE (07:16)
[2020-05-23] MEDS ORDERED: Furosemide 20 MG/2 ML VIAL IVP SCH (09:00)
[2020-05-23] MEDS: Calcium Gluconate 1gm/50mL 1 GM/50 ML BAG IVPB SCH ×2 (09:19→10:16)
[2020-05-23] MEDS: Nicotine 14 MG PATCH.TD24 TD SCH (09:35)
[2020-05-23] MEDS: Ferrous Sulfate Oral Soln 300 MG/5 ML UDC GTUBE SCH (09:37)
[2020-05-23] MEDS: Multivitamin Liquid 15 ML UDC GTUBE SCH (09:39)
[2020-05-23] MEDS: Chlorhexidine Rinse 15 ML MOUTHWASH MM SCH ×2 (09:39→21:25)
[2020-05-23] MEDS: Folic Acid 1 MG TABLET GTUBE SCH (09:41)
[2020-05-23] MEDS: Aspirin 81 MG TAB.CHEW GTUBE SCH (09:41)
[2020-05-23] MEDS: Thiamine (B-1) 100 MG TABLET GTUBE SCH (09:41)
[2020-05-23] MEDS: Famotidine 20 MG TABLET GTUBE SCH (09:41)
[2020-05-23] MEDS: lisinopriL 5 MG TABLET PO SCH (09:42)
[2020-05-23] MEDS: Budesonide/Formoterol 160/4.5 1 PUFF INH IH SCH ×2 (10:12→22:58)
[2020-05-23] MEDS: Dexmedetomidine HCl 400 MCG/100 ML MLS IVC SCH (12:24)
[2020-05-23] MEDS: *HR* FentaNYL PATCH 100 MCG PATCH TD SCH (13:02)
[2020-05-23] MEDS ORDERED: *HR* OxyCODONE Immed Rel 5 MG TABLET PO ONE (14:48)
[2020-05-23] MEDS: OLANZapine 5 MG TAB.RAPDIS PO SCH (21:25)
[2020-05-24] MEDS: Piperacillin/Tazobactam 3.375 GM in 0.9 % Sodium Chloride Mini Bag 100 ML IVPB SCH ×2 (00:10→08:04)
[2020-05-24] MEDS: Haloperidol Oral Conc 10 MG/5 ML UDC PO SCH ×3 (00:10→15:53)
[2020-05-24] MEDS: Insulin LISPRO 300 UNITS/3 ML VIAL SUBQ SCH ×3 (00:13→12:57)
[2020-05-24] MEDS: Ipratropium/Albuterol Neb 3 ML IH SCH ×4 (03:59→23:29)
[2020-05-24] MEDS: Acetylcysteine 10% 2 ML INHSOL IH SCH ×4 (03:59→23:28)
[2020-05-24] MEDS: MethylPREDNISolone 40 MG/ML VIAL IVP SCH (04:55)
[2020-05-24 07:23] LABS: Hematocrit 26.8 % (37.5-50.1); Hemoglobin 8.3 g/dL (12.9-16.9); Mean Corpuscular Hemoglobin 25.9 pg (28.0-33.3); Mean Corpuscular Volume 83.8 fL (83.0-100.0); Mean Platelet Volume 11.8 fL (9.4-12.4); Platelet Count 169 K/mcL (140-400); White Blood Count 9.3 K/mcL (4.3-11.1)
[2020-05-24 07:52] LABS: BUN/Creatinine Ratio 20 (6-26); Blood Urea Nitrogen 16 mg/dL (8-23); Calcium 8.6 mg/dL (8.6-10.3); Carbon Dioxide 27 mEq/L (23-29); Chloride 103 mEq/L (98-107); Glucose 187 mg/dL (70-105); Osmolality,Calculated 292 (280-300); Phosphorous 2.7 mg/dL (2.7-4.5); Potassium 3.9 mEq/L (3.5-5.1); Sodium 138 mEq/L (136-145); eGFR For African Americans > 60 (> 60); eGFR For Non-African Americans > 60 (> 60)
[2020-05-24] MEDS: Aspirin 81 MG TAB.CHEW GTUBE SCH (08:01)
[2020-05-24] MEDS: Chlorhexidine Rinse 15 ML MOUTHWASH MM SCH (08:01)
[2020-05-24] MEDS: Ferrous Sulfate Oral Soln 300 MG/5 ML UDC GTUBE SCH (08:01)
[2020-05-24] MEDS: Thiamine (B-1) 100 MG TABLET GTUBE SCH (08:01)
[2020-05-24] MEDS: Multivitamin Liquid 15 ML UDC GTUBE SCH (08:02)
[2020-05-24] MEDS: Famotidine 20 MG TABLET GTUBE SCH (08:02)
[2020-05-24] MEDS: Folic Acid 1 MG TABLET GTUBE SCH (08:02)
[2020-05-24] MEDS: Nicotine 14 MG PATCH.TD24 TD SCH (08:03)
[2020-05-24] MEDS: lisinopriL 5 MG TABLET PO SCH (08:03)
[2020-05-24] MEDS: Budesonide/Formoterol 160/4.5 1 PUFF INH IH SCH ×2 (09:46→23:29)
[2020-05-24 12:42] VITALS: BP 94/65
[2020-05-24] MEDS: Dexmedetomidine HCl 400 MCG/100 ML MLS IVC SCH (15:52)
[2020-05-25] MEDS: Ipratropium/Albuterol Neb 3 ML IH SCH (04:00)
[2020-05-25] MEDS: Acetylcysteine 10% 2 ML INHSOL IH SCH (04:00)
== END 2020-05-24 17:54 | disposition hospice, home (50) | DRG 4 ==
LOC: EMEROOARM 13:12 → ICNU 17:00 → SUATTDRO 19:40 → 2NNU 05-17 20:14
PROVIDERS: ADMIT Pediatrics; ATTEND Internal Medicine
PROC: IRDRAIN (2020-05-20 13:00)